=== PATIENT | female | born 1990 | race Caucasian/White ===

== ENCOUNTER 2016-03-20 09:48 | Outpatient (CLI) | payer OTHER ==
[~2016-03-20] VITALS: Ht 160 cm; Wt 90.9 kg
[~2016-03-20 09:48] MED LIST: VITAMIN D 50,1.25 MG PO
[2016-03-20 09:50] VITALS: BP 131/82; PULSE 87
[2016-03-20] MEDS ORDERED: BIOTIN10000 MCG PO (10:11)
[2016-03-20] MEDS ORDERED: IMODIUM A-D2 MG PO (10:12)
[2016-03-20] MEDS ORDERED: TYLENOL 325MG325 MG PO (10:13)
[2016-03-20 10:55] VITALS: BP 103/70; PULSE 75
[2016-03-20 11:05] VITALS: BP 110/58; PULSE 74
[2016-03-20 11:25] VITALS: BP 103/73; PULSE 81
[2016-03-20 11:59] VITALS: BP 103/66; PULSE 79
== END 2016-03-20 12:39 | disposition home or self-care (01) ==
LOC: COL.RAD 09:48
DX: R51 Headache (principal)